=== PATIENT | female | born 1950 | race Caucasian/White ===

== ENCOUNTER → 2017-11-07 | Outpatient (REF) | payer MEDICARE ==
[2017-11-07 17:42] LABS: RHEUMATOID FACTOR QUANT < 10.0 IU/ML (<15.0)
== END ==
LOC: M LAB REF 17:22
DX: M25.542 Pain in joints of left hand (principal)
CPT/HCPCS: 86431

== ENCOUNTER → 2022-06-08 | Outpatient (CLI) | payer MEDICARE | LOC: M WHC 13:41 | PROVIDERS: ATTEND Internal Medicine | DX: Z12.31 Encounter for screening mammogram for malignant neoplasm of breast (principal) ==

== ENCOUNTER → 2023-04-27 | Outpatient (REF) | payer MEDICARE | LOC: M LAB REF 16:24 | PROVIDERS: ATTEND Internal Medicine | DX: M25.50 Pain in unspecified joint (principal) ==

== ENCOUNTER → 2023-11-26 | Outpatient (REF) | payer MEDICARE | LOC: M LAB REF 11:37 | PROVIDERS: ATTEND Internal Medicine | DX: M15.9 Polyosteoarthritis, unspecified (principal) ==

== ENCOUNTER → 2024-02-04 | Outpatient (CLI) | payer MEDICARE | LOC: M WHC 13:24 | PROVIDERS: ATTEND Internal Medicine | DX: Z12.31 Encounter for screening mammogram for malignant neoplasm of breast (principal); R92.313 Mammographic fatty tissue density, bilateral breasts ==

== ENCOUNTER → 2024-11-25 | Outpatient (CLI) | payer MEDICARE | LOC: M WUC 15:02 | PROVIDERS: ATTEND Internal Medicine | DX: M25.512 Pain in left shoulder (principal) ==

== ENCOUNTER 2025-02-19 11:35 | Emergency (ER) | payer MEDICARE ==
[~2025-02-19] VITALS: Ht 149.9 cm; Wt 81.3 kg
[2025-02-19 12:09] LABS: BASO # 0.1 10^3/uL (0.0-0.2); BASO % 0.5 % (0.0-1.0); EOS # 0.2 10^3/uL (0.0-0.5); EOS % 2.4 % (0.0-3.0); LYMPH # 1.5 10^3/uL (1.5-5.0); LYMPH % 16.3 % (24.0-44.0); MONO # 0.3 10^3/uL (0.0-0.8); MONO % 3.5 % (2.0-8.0); NEUTROPHILS # 7.2 10^3/uL (1.5-8.5); NEUTROPHILS % 76.9 % (36.0-66.0); PLATELET COUNT, AUTOMATED 279 10^3/uL (150-450)
[2025-02-19 12:40] LABS: ALT/SGPT 13.0 U/L (7.0-40); AST/SGOT 17.0 U/L (<34); CALCIUM LEVEL 9.4 MG/DL (8.3-10.6); CARBON DIOXIDE LEVEL 27.0 MMOL/L (20-31); CHLORIDE LEVEL 102.0 MMOL/L (98-107); CK-MB VALUE MASS 1.5 NG/ML (<3.6); CPK CREATINE PHOSPHOKINASE 76.0 U/L (34-145); CREATININE FOR GFR 1.08 MG/DL (0.55-1.30); GLOMERULAR FILTRATION RATE 53.6 (>39); MB/CK RELATIVE INDEX 1.97 (< OR =4); POTASSIUM SERUM 4.6 MMOL/L (3.5-5.1); SODIUM LEVEL 142.0 MMOL/L (136-145)
[2025-02-19] MEDS ORDERED: MIRA50TA2 PO (12:47)
[2025-02-19] MEDS ORDERED: LOSA100T46 PO (12:47)
[2025-02-19] MEDS: NS 500 ML IV ONE (13:03)
[2025-02-19 13:35] LABS: MAGNESIUM LEVEL 1.6 MG/DL (1.8-2.4); PHOSPHORUS LEVEL 3.4 MG/DL (2.4-5.1)
[2025-02-19] MEDS ORDERED: HOME MED LIST COMPLETE! XX SCH (13:35)
[2025-02-19 14:03] LABS: CK-MB VALUE MASS 2.3 NG/ML (<3.6)
[2025-02-19 14:04] LABS: CPK CREATINE PHOSPHOKINASE 105.0 U/L (34-145); MB/CK RELATIVE INDEX 2.19 (< OR =4)
[2025-02-19 14:39] VITALS: BP 135/59; TEMP 96.8; O2SAT 95
== END 2025-02-19 14:48 | disposition home or self-care (01) ==
LOC: EDBD 11:35 → M ED 11:35
DX: R55 Syncope and collapse (principal); I10 Essential (primary) hypertension; Z88.5 Allergy status to narcotic agent; Z88.0 Allergy status to penicillin